=== PATIENT | female | born 1965 | race Caucasian/White ===

== ENCOUNTER 2023-01-01 06:18 | Day surgery (SDC) | payer BC, SELFPAY ==
--- NOTE | 2022-12-31 09:52 | HO.ANESPROP2 ---
HPI - Anesthesia Eval Consult details Narrative: 57yo F for Colonoscopy PMFSH Past Medical History Medical History (Updated 01/01/23 @ 06:33 by Kizzy Erickson) Family history of hypothyroidism History of hypothyroidism History of posttraumatic stress disorder (PTSD) Hx of hyperlipidemia Hx of radiation therapy Hx of valvular heart disease Surgical History Surgical History (Updated 01/01/23 @ 06:33 by Kizzy Erickson) H/O colonoscopy History of right breast biopsy History of surgery of uterus Social History Social History Patient Tobacco Use Status: Former Tobacco user Quit Date: 1989 Tobacco use type: Cigarette Years Smoked: 6 Smoked in Last 30 Days: No Use of substances other than those prescribed or required for medical reasons: No Are you DNR?: No Advance Directives: No Advance Directives Information Provided: Yes Meds Allergies Allergy/AdvReac Type Severity Reaction Status Date / Time codeine [CODEINE] Allergy Unknown RASH Verified 01/01/23 06:25 Tetracyclines [TETRACYCLINES] Allergy Unknown RASH Verified 01/01/23 06:25 Home Medications Medication Instructions Recorded Confirmed Last Taken Type levothyroxine 88 mcg tablet 88 mcg PO DAILY 12/31/22 01/01/23 01/01/23 History (Synthroid) rosuvastatin 10 mg tablet 10 mg PO BEDTIME 12/31/22 01/01/23 Unknown History Exam Exam Date and Time: December 31, 2022 0952 Assessment and Plan Assessment Anesthesia Assessment: Chart Reviewed
[2023-01-01 06:33] VITALS: BP 148/86; PULSE 99; RESP 16; TEMP 36.8; O2SAT 99; BMI 29.2
--- NOTE | 2023-01-01 07:28 | P.CONAN_ITS ---
[facility] Past Medical History Medical History (Updated 01/01/23 @ 06:33 by Kizzy Erickson) Family history of hypothyroidism History of hypothyroidism History of posttraumatic stress disorder (PTSD) Hx of hyperlipidemia Hx of radiation therapy Hx of valvular heart disease Family History Family history of problems with anesthesia: No Surgical History Surgical History (Updated 01/01/23 @ 06:33 by Kizzy Erickson) H/O colonoscopy History of right breast biopsy History of surgery of uterus History of Problems with Anesthesia: No Social History Social History Patient Tobacco Use Status: Former Tobacco user Quit Date: 1989 Tobacco use type: Cigarette Years Smoked: 6 Smoked in Last 30 Days: No Use of substances other than those prescribed or required for medical reasons: No Are you DNR?: No Advance Directives: No Advance Directives Information Provided: Yes Meds Allergies Allergy/AdvReac Type Severity Reaction Status Date / Time codeine [CODEINE] Allergy Unknown RASH Verified 01/01/23 06:25 Tetracyclines [TETRACYCLINES] Allergy Unknown RASH Verified 01/01/23 06:25 Active Medications: Current Medications Lactated Ringer's (Lr) 1,000 mls @ 100 mls/hr IVCONT .Q10H ON LICENSE OF [facility] Home Medications Medication Instructions Recorded Confirmed Last Taken Type levothyroxine 88 mcg tablet 88 mcg PO DAILY 12/31/22 01/01/23 01/01/23 History (Synthroid) rosuvastatin 10 mg tablet 10 mg PO BEDTIME 12/31/22 01/01/23 Unknown History Exam Exam Date and Time: January 01, 2023 0728 Height,Weight and Vital Signs: Height 5 ft 4 in Weight 77.111 kg Last Vital Signs Temp 98.2 F 01/01/23 06:33 Pulse 99 01/01/23 06:33 Resp 16 01/01/23 06:33 BP 148/86 H 01/01/23 06:33 Pulse Ox 99 01/01/23 06:33 O2 Del Method Room Air 01/01/23 06:33 Airway Mallampati Class: III TM Dist: >3cm Neck ROM: Full Loose/Missing/Broken Teeth: No Heart: rr Lungs: clear Assessment and Plan Final Anesthetic Review Family History of Problems with Anesthesia: No History of Problems with Anesthesia: No NPO: Yes ASA Class: II Final Preanesthetic Review: No Changes in Pt Med Stat, Meds/Allgs Chart Reviewed and Consent Obtained/Reviewed Patient Risk: Low Procedure Risk: Low Anesthetic Plan Anesthetic Plan: MAC: Disposition: Standard PACU
[2023-01-01] MEDS: Lactated Ringers 1,000 ML 100 ML IVCONT (07:30)
--- NOTE | 2023-01-01 07:33 | MHC.SHP ---
Pre-Procedural Eval Section A Date of Service: 01/01/23 Section B Chief Complaint: Screening Details of Present Illness: see H&P no changes Relevant Family History (Specify if Yes): No Relevant Social History: None Present Medications: see Short Stay Collaborative assessment Medical History: No relevant PMH History of Previous Operations: No relevant previous surgery Allergies: Allergies Allergy/AdvReac Type Severity Reaction Status Date / Time codeine [CODEINE] Allergy Unknown RASH Verified 01/01/23 06:25 Tetracyclines [TETRACYCLINES] Allergy Unknown RASH Verified 01/01/23 06:25 Review of Systems Sugical H&P ROS: Negative: Constitution, Cardiovascular, Respiratory, Neurological, Psychiatric, Hem-Onc, Allergic/Immunologic, Gastrointestinal, Genitourinary, Musculoskeletal, Integumentary, Endocrine and Eyes/Ears/Nose/Throat Exam Surgical H&P Exam: Normal: HEENT, Normal: Heart, Normal: Lungs, Normal: Extremities, Normal: Abdomen, Normal: Skin and Normal: Neurological Plan Diagnosis/Plan: Unchanged I have reviewed the history and physical and performed a pertinent physical examination on my patient. No changes have occurred unless specified. Time Spent With Patient Time: Total time managing care of this patient today ____ minutes.
[2023-01-01 08:10] VITALS: BP 112/65; PULSE 81; RESP 16; TEMP 36.9; O2SAT 96
--- NOTE | 2023-01-01 08:18 | PM.OP ---
Brief Operative Note Date of Service: 01/01/23 Pre-op diagnosis: screening Post-op diagnosis: same Procedure: colonoscopy Surgeon: Milo Chandler Anesthesia: MAC Was an Outreach Associate used for this Procedure?: No Estimated blood loss (mL): 0 Pathology: none sent Condition: stable Disposition: PACU
[2023-01-01 08:25] VITALS: BP 116/61; PULSE 81; RESP 18; O2SAT 99
[2023-01-01 08:40] VITALS: BP 130/76; PULSE 76; RESP 18; TEMP 36.4; O2SAT 99
--- NOTE | 2023-01-01 08:45 | OP_ITS ---
DATE OF SERVICE: 01/01/2023 SURGEON: Milo Chandler MD INDICATIONS: Colon cancer screening and prior history of adenomatous colon polyps. PREOPERATIVE DIAGNOSIS: POSTOPERATIVE DIAGNOSIS: PROCEDURE PERFORMED: Colonoscopy to the cecum. ESTIMATED BLOOD LOSS: COMPLICATIONS: ANESTHESIA: Monitored anesthesia care. ASSISTANTS: SPECIMENS: DESCRIPTION OF PROCEDURE: A history and physical performed. The risks and benefits of the procedure were explained to the patient. Informed consent was obtained. The patient was placed in the left lateral decubitus position. A digital rectal exam was performed and was found to be normal. The Olympus pediatric videocolonoscope was introduced into the rectum and advanced to the cecum without difficulty. The cecum was identified by transillumination, palpation, and identification of the ileocecal valve. Examination was performed. The scope was removed. She tolerated the procedure well and was taken to recovery room in stable condition. FINDINGS: The terminal ileum was not examined. The visualized mucosa was normal. Quality of prep was good. There was some liquid stool, which was suctioned. No polyps were identified. Retroflexed examination was normal. There was mild sigmoid diverticulosis. IMPRESSION: Normal colonoscopy. RECOMMENDATIONS: 1. Follow up as needed. 2. Repeat colonoscopy is recommended in 10 years for average risk individuals. MD SERGE Francois/CHELSEYL / [phone]
== END 2023-01-01 09:00 | disposition home or self-care (01) ==
PROVIDERS: PCP Physician Assistant; Visit Provider Internal Medicine Gastroenterology
PROC: 0DJD8ZZ Inspection of Lower Intestinal Tract, Via Natural or Artificial Opening Endoscopic (ICD-10-PCS; CPT 45378; principal; 2023-01-01 07:30)
DX: Z12.11 Encounter for screening for malignant neoplasm of colon (principal); Z86.010 Personal history of colon polyps; K57.30 Diverticulosis of large intestine without perforation or abscess without bleeding; E78.5 Hyperlipidemia, unspecified; E03.9 Hypothyroidism, unspecified; E74.39 Other disorders of intestinal carbohydrate absorption; F43.10 Post-traumatic stress disorder, unspecified; Z85.3 Personal history of malignant neoplasm of breast; Z92.3 Personal history of irradiation; Z79.899 Other long term (current) drug therapy; Z88.1 Allergy status to other antibiotic agents; Z88.8 Allergy status to other drugs, medicaments and biological substances
CPT/HCPCS: 45378